=== PATIENT | male | born 1975 | race Caucasian/White ===

== ENCOUNTER 2024-05-11 15:50 | Outpatient (CLI) | payer BC, SELFPAY ==
[2024-05-11 16:37] LABS: Alanine Aminotransferase 36 U/L (6-50); Aspartate Amino Transferase 47 U/L (17-59)
== END 2024-05-11 15:51 | disposition home or self-care (01) ==
LOC: ANHLAB 15:54
PROVIDERS: Visit Provider Podiatrist Foot & Ankle Surgery
DX: B35.1 Tinea unguium (principal)
CPT/HCPCS: 36415; 84450; 84460

== ENCOUNTER 2024-10-28 14:40 | Outpatient (CLI) | payer BC, SELFPAY ==
[2024-10-28 15:26] LABS: Alanine Aminotransferase 35 U/L (6-50); Aspartate Amino Transferase 35 U/L (17-59)
--- OUTSIDE RECORDS SUMMARY | 2024-10-29 14:37 | XMS_ITS | Clinical Summary ---
Author Organization [facility] Address [address] [place] [address] Care Team Providers Care Enrichment Assistant Name Role Phone Jeferson Vinson APRN-RELIEF PILOT Primary Care Provider + Fran Appiah DPM Unavailable [phone] Source Comments [facility],non-owned Affiliates and Associated Physician Practices is amultiple site organization consisting of ambulatory clinics and hospital sitesin [place], [place], [place] and [place]. This disclosure is being madepursuant to the Care Everywhere program and may not contain all information available regarding this patient. Last updated 18.[facility] Allergies No known active allergies Medications * Be aware that medications may not be up to date on this document. Alwaysverify current medications with the patient. semaglutide (RYBELSUS) 7 MG tabletIndications:T ype 2 diabetes mellitus without complication, without long-term current use of insulin (HCC) Take 1 (one) tablet by mouth once daily 30 tablet 1 2 Active rosuvastatin (Crestor) 20 MG tabletIndications:M ixed hyperlipidemia Take 1 (one) tablet by mouth once daily 90 tablet 4 4 Active valsartan-hydroCHLO ROthiazide (Diovan HCT) 320-25 MG tabletIndications:E ssential hypertension Take 1 (one) tablet by mouth once daily 90 tablet 4 4 Active metFORMIN (Glucophage) 500 MG tablet Take 2 (two) tablets by mouth 2 times daily with morning and evening meal 360 tablet 4 4 Active Active Problems Problem Noted Date Diagnosed Date Atypical pigmented skin lesion 01/16/2022 Overview (01/16/2022): Left Upper shoulder Prostate cancer screening 12/10/2021 Type 2 diabetes mellitus wit hout complication, without long-term current use of insulin 12/10/2021 Mixed hyperlipidemia 12/10/2021 Essential hypertension 12/10/2021 Immunizations Immunization Administration Dates Next Due HEP A VACCINE, ADULT 02/15/2023 MMR VACCINE 12/11/1992 TD (AGE 6-ADULT) 12/11/1992 Family History Medical History Relation Name Comments Cancer - Prostate Father Cancer - Colon Maternal Grandmother Diabetes; unknown type Paternal Grandmother Relation Name Status Comments Father Maternal Grandmother Paternal Grandmother Social History Tobacco Use Types Packs/Day Years Used Date Smoking Tobacco: Never Smokeless Tobacco: Never Alcohol Use Standard Drinks/Week Comments Not Currently 0 (1 standard drink = 0.6 oz pur e alcohol) rarely PHQ-2 Answer Date Recorded Patient Health Questionnaire-2 Score 0 12/16/2023 Sex and Gender Information Value Date Recorded Sex Assigned at Not on file Legal Sex Male 5:45 PM CDT Gender Identity Not on file Sexual Orientation Not on file Last Filed Vital Signs Vital Sign Reading Time Taken Comments Blood Pressure 118/74 12/16/2023 10:44 AM CDT Pulse 74 12/16/2023 10:44 AM CDT Temperature 36.7 C (98 F) 12/16/2023 10:44 AM CDT Respiratory Rate 16 12/16/2023 10:4 4 AM CDT Oxygen Saturation 98% 12/16/2023 10: 44 AM CDT Inhaled Oxygen Concentration - - Weight 107.8 kg (237 lb 9.6 oz) 024 10:44 AM CDT Height 182.9 cm (6') 12/16/2023 10:44 AM CDT Body Mass Index 32.22 12/16/2023 10:44 AM CDT Plan of Treatment Upcoming Encounters Date Type Department Care Team ([facility] st Contact Info) Description 12/02/2024 11:00 AM CDT Office Visit [facility] [address] [place] [id number] Jeferson Vinosn [facility] [address] [place] [address] Health Maintenance Due Date Last Done Comments COLON MONITORING 1974 COLONOSCOPY - COLON CA SCREENING 1974 CT COLONOGRAPHY - COLON CA SCREENING 1974 FIT - COLON CA SCREENING 1974 FLEX SIG - COLON CA SCREENING 1974 MENINGOCOCCAL GROUPS A/C/Y/W VACCINE (1 - Risk 2-dose series) 1976 PNEUMOCOCCAL VACCINE 50+ (1 of 2 - PCV) 1993 ZOSTER VACCINE (1 of 2) 1993 DTAP/TDAP/TD VACCINES (2 - Td or Tdap) 12/11/2002 12/11/1992 DIABETES RETINOPATHY SCREENING 12/10/2021 DIABETES-FOOT EXAM WITH MONOFILAMENT 12/10/2021 COVID-19 VACCINE ( season) 2024 04/25/2021, 08/17/2020, 07/27/2020 DEPRESSION SCREENING 06/29/2024 12/16/2023, 12/11/19 DIABETES - URINE PROTEIN SCREENING 06/29/2024 02/10/2024, 12/16/2023 DIABETES-HGB A1C 08/12/2024 02/10/2024, 12/16/2023 COLOGUARD (AGES 45-75) - COLON CA SCREENING 12/27/2024 12/27/2021, 12/27/2021 Colorectal Cancer Screening 12/27/2024 DIABETES-SERUM CREATININE 02/09/2025 02/10/2024, INFLUENZA VACCINE (Season Ended) 2025 HEPATITIS C SCREENING Completed 12/10/2021 HIV SCREENING Completed 12/14/2021, 11/27, 12/14/2021, Additional history exists HEPATITIS B VACCINE Discontinued HIB VACCINE Aged Out No longer eligi ble based on patient's age to complete this topic HPV VACCINE Aged Out No longer eligi ble based on patient's age to complete this topic MENINGOCOCCAL (Group B) VACCINE SHARED DECISION-MAKING Aged Out No longer eligible based on patient's age to complete this topic Procedures Procedure Name Priority Date/Time Associated Diagnosis Comments MICROALB/CREAT RATIO URINE RANDOM PANEL Routine 02/10/2024 7:16 AM CDT Type 2 diabetes mellitus without complication, without long-term current use of insulin COMPREHENSIVE METABOLIC PANEL Routine 02/10/2024 7:16 AM CDT Essential hypertension HEMOGLOBIN A1C Routine 02/10/2024 7:16 AM CDT Type 2 diabetes mellitus without complication, without long-term current use of insulin COLOGUARD TEST Routine 12/27/2021 7:50 AM CDT Special screening for malignant neoplasms, colon HIV-1 HIV-2 ANTIBODY + HIV P24 AG PANEL Routine 12/14/2021 9:08 AM CDT HIV p24 antigen positive HEPATITIS C ANTIBODY Routine 12/10/2021 10:47 AM CDT Need for hepatitis C screening test from Last 3 Months or Most Recently Relevant to Health Maintenance Results * MICROALB/CREAT RATIO URINE RANDOM PANEL (02/10/2024 7:16 AM CDT) Creatinine Urine 58.3 Not Estab. mg/dL 02/11/2024 12:08 PM CDT [facility]) Microalbumin Urine 3.3 Not Estab. ug/mL 02/11/2024 12:08 PM CDT [facility] ([facility]) Microalbumin/Crea tinine Ratio 6 0 - 29 mg/g creat 02/11/2024 12:08 PM CDT [facility] ([facility]) Comment: Normal: 0 - 29 Moderately increased: 30 - 300 Severely increased: >300 Urine URINE SPECIMEN OBTAINED BY CLEAN CATCH PROCEDURE / Unknown Collection / Unknown 02/10/2024 7:16 AM CDT 02/10/2024 7:16 AM CDT [facility] ([facility]) - 02/11/2024 12:08 PM CDT Performed at: [address] [place] [id number] Senior Oracle Soa Developer: Jonh Paredes PhD, Phone: [phone] Jeferson Vinson APRN-RELIEF PILOT LAB - URINE CHEMISTRY OR DERABLES Final Result Performing Organization Address City/[facility]/ZIP Co de Phone Number [facility] ([facility]) [address] [address] * (ABNORMAL) HEMOGLOBIN A1C (02/10/2024 7:16 AM CDT) Hemoglobin A1c 6.4(H) 0.0 - 5.7 % 02/10/2024 8:39 AM CDT [facility] ([facility]) Estimated Average Glucose 136.98 mg/dL 02/10/2024 8:39 AM CDT [facility] ([facility]) Blood BLOOD SPECIMEN / Unknown Lab Venipuncture / Unknown 02/10/2024 7:16 AM CDT 02/10/2024 7:16 AM CDT Narrative [facility] ([facility]) - 02/10/2024 8:39 AM CDT [employer] Suggested Interpretation: 5.7-6.4% Hemoglobin A1c = Prediabetes >6.5% Hemoglobin A1c = Consistent with Diabetes Jeferson Vinson APRN-RELIEF PILOT LAB - CHEMISTRY ORDERABL ES Final Result Performing Organization Address [facility] Co de Phone Number [facility] ([facility]) [address] [place] [address] * (ABNORMAL) COMPREHENSIVE METABOLIC PANEL (02/10/2024 7:16 AM CDT) Sodium 142 137 - 145 mmol/L 02/10/2024 10:35 AM CDT [facility] ([facility]) Potassium 3.9 3.6 - 5.0 mmol/L 02/10/2024 10:35 AM CDT [facility] ([facility]) Chloride 101 98 - 107 mmol/L 02/10/2024 10:35 AM CDT [facility] ([facility]) Carbon Dioxide 31 21 - 31 mmol/L 02/10/2024 10:35 AM CDT [facility] ([facility]) Glucose 115(H) 75 - 100 mg/dL 02/10/2024 10:35 AM [facility] ([facility]) BUN 23(H) 7 - 17 mg/dL 02/10/2024 10:35 AM [facility] ([facility]) Creatinine 0.90 0.66 - 1.25 mg/dL 02/10/2024 10:35 AM [facility] ([facility]) eGFR 90 >=60 ml/min/1.7 3*2 02/10/2024 10:35 AM [facility] ([facility]) Comment: Chronic kidney disease is defined as either the presence of kidney disease or a GFR of less than 60 ml/min/1.732 for 3 or more months and can be diagnosed without knowledge of its cause (NKF). Reference range in ml/min/1.732 For healthy adults > 60 Chronic Kidney Disease 15-60. GFR is not recommended for patients greater than 70 years. Reference ranges not available for patients under 18 yrs. Test will not be performed. BUN/Creatinine Ratio 26.9(H) 6.0 - 26.0 02/10/2024 10:35 AM [facility] ([facility]) Calcium 10.2 8.4 - 10.7 mg/dL 02/10/2024 10:35 AM [facility] ([facility]) Protein Total 8.5(H) 6.3 - 8.2 g/dL 02/10/2024 10:35 AM [facility] ([facility]) Albumin 5.0 3.9 - 5.0 g/dL 02/10/2024 10:35 AM [facility] ([facility]) Albumin/Globulin Ratio 1.4 1.1 - 2.2 g/dL 02/10/2024 10:35 AM [facility] ([facility]) Bilirubin Total 1.4(H) 0.2 - 1.3 mg/dL 02/10/2024 10:35 AM [facility] ([facility]) Alkaline Phosphatase 57 38 - 126 U/L 02/10/2024 10:35 AM [facility] ([facility]) AST 44 14 - 50 U/L 02/10/2024 10:35 AM CDT [facility] ([facility]) ALT 33 9 - 52 U/L 02/10/2024 10:35 AM CDT [facility] ([facility]) Blood BLOOD SPECIMEN / Unknown Lab Venipuncture / Unknown 02/10/2024 7:16 AM CDT 02/10/2024 7:16 AM CDT Jeferson Vinson JAVASCRIPT WEB DEVELOPER-RELIEF PILOT LAB - CHEMISTRY ORDERABL ES Final Result [facility] ([facility]) [address] [place] [address] * COLOGUARD TEST (12/27/2021 7:50 AM CDT) Cologuard Negative Negative [facility] Comment: NEGATIVE TEST RESULT. A negative Cologuard result indicates a low likelihood that a colorectal cancer (CRC) or advanced adenoma (adenomatous polyps with more advanced pre-malignant features) is present. The chance that a person with a negative Cologuard test has a colorectal cancer is less than 1 in 1500 (negative predictive value >99.9%) or has an advanced adenoma is less than 5.3% (negative predictive value 94.7%). These data are based on a prospective cross-sectional study of 10,000 individuals at average risk for colorectal cancer who were screened with both Cologuard and colonoscopy. (Aristeo Sarkar et al, N Engl J Med 2014;370(14):6369-5503) The normal value (reference range) for this assay is negative. COLOGUARD RE-SCREENING RECOMMENDATION: Periodic colorectal cancer screening is an important part of preventive healthcare for asymptomatic individuals at average risk for colorectal cancer. Following a negative Cologuard result, the [place] [employer] Society and U.S. Multi-Society Task Force screening guidelines recommend a Cologuard re-screening interval of 3 years. References: [employer] Guideline for Colorectal Cancer Screening: https://www.cancer.org/cancer/ypptf-bcowkp-ylaqlm/nnctbiftz-ndgeqpxjp-jigmqst/ acs-recommendations.html.; Jorge Luis DK, Cielo ENAMORADO, Garo GONZALEZ, Colorectal Cancer Screening: Recommendations for Physicians and Patients from the U.S. Multi-Society Task Force on Colorectal Cancer Screening , Am J Gastroenterology 2017; 112:5382-1119. TEST DESCRIPTION: Composite algorithmic analysis of stool DNA-biomarkers with hemoglobin immunoassay. Quantitative values of individual biomarkers are not reportable and are not associated with individual biomarker result reference ranges. Cologuard is intended for colorectal cancer screening of adults of either sex, 45 years or older, who are at average-risk for colorectal cancer (CRC). Cologuard has been approved for use by the U.S. FDA. The performance of Cologuard was established in a cross sectional study of average-risk adults aged 50-84. Cologuard performance in patients ages 45 to 49 years was estimated by sub-group analysis of near-age groups. Colonoscopies performed for a positive result may find as the most clinically significant lesion: colorectal cancer [4.0%], advanced adenoma (including sessile serrated polyps greater than or equal to 1cm diameter) [20%] or non- advanced adenoma [31%]; or no colorectal neoplasia [45%]. These estimates are derived from a prospective cross-sectional screening study of 10,000 individuals at average risk for colorectal cancer who were screened with both Cologuard and colonoscopy. (Aristeo Cordero. et al, N Engl J Med 2014;370(14):2964-3859.) Cologuard may produce a false negative or false positive result (no colorectal cancer or precancerous polyp present at colonoscopy follow up). A negative Cologuard test result does not guarantee the absence of CRC or advanced adenoma (pre-cancer). The current Cologuard screening interval is every 3 years. ([employer] Cancer Society and U.S. Multi-Society Task Force). Cologuard performance data in a 10,000 patient pivotal study using colonoscopy as the reference method can be accessed at the following location: www.[employer]/results. Additional description of the Cologuard test process, warnings and precautions can be found at www.[employer].com. Stool STOOL SPECIMEN / Unknown 12/27/2021 7:50 AM CDT 12/28/2021 4:07 PM CDT Jeferson Vinson [facility] - CHEMISTRY ORDERABL ES Final Result Performing Organization Address City/[facility]/ZIP Co de Phone Number [facility] [address] [place] [address] [facility] [address] [place] [address] * HIV-1 HIV-2 ANTIBODY + HIV P24 AG PANEL (12/14/2021 9:08 AM CDT) Pathologist [facility] HIV Screen 4th Generation w Reflex Non Reactive Non Reactive 02/03/2022 12:02 PM CDT [facility] ([facility]) Comment: HIV Negative HIV-1/HIV-2 antibodies and HIV-1 p24 antigen were NOT detected. There is no laboratory evidence of HIV infection. Blood BLOOD SPECIMEN / Unknown Lab Venipuncture / Unknown 12/14/2021 9:08 AM CDT 12/14/2021 9:08 AM CDT Narrative [facility] ([facility]) - 02/03/2022 12:02 PM CDT Performed at: 01 - [facility] [address] [place], [place] [id number] Senior [employer] Soa Developer: Jonh Paredes PhD, Phone: [phone] Jefersonlianne Vinson JAVASCRIPT [facility]B [facility] - CHEMISTRY ORDERABL ES Edited Result - Final Performing Organization Address City/[facility] Co de Phone Number [facility] ([facility]) [address] [place] [address] * HEPATITIS C ANTIBODY (12/10/2021 10:47 AM CDT) [facility] Hepatitis C Antibody <0.1 0.0 - 0.9 s/co ratio 12/11/2021 12:07 PM CDT [facility] ([facility]) Comment: Negative: < 0.8 Indeterminate: 0.8 - 0.9 Positive: > 0.9 HCV antibody alone does not differentiate between previous resolved infection and active infection. The CDC and current clinical guidelines recommend that a positive HCV antibody result be followed up with an HCV RNA test to support the diagnosis of acute HCV infection. [facility] offers Hepatitis C Virus (HCV) RNA, Diagnosis, JENAE (673147) and Hepatitis C Virus (HCV) Antibody with reflex to Quantitative Real-time PCR ([id number]). Blood BLOOD SPECIMEN / Unknown Lab Venipuncture / Unknown 12/10/2021 10:47 AM CDT 12/10/2021 10:47 AM CDT Narrative [facility] ([facility]) - 12/11/2021 12:07 PM CDT Performed at: 01 - [facility] [address] [place], [place] [id number] Senior [employer] So[employer] Developer: Jonh Paredes PhD, Phone: [phone] us Jeferson Vinson APRN-NUHA LAB - CHEMISTRY ORDERABL ES Final Result [facility] ([facility]) [address] [place] [address] from Last 3 Months or Most Recently Relevant to Health Maintenance Insurance Care Teams Enrichment Assistant Relationship Specialty Start Date End Date Jeferson Vinson APRN-CNP [address] [place] [address] PCP - General Nurse Practitioner 12/10/21 Fran Appiah DPM [address] [place] [address] Podiatry 12/10/21
--- OUTSIDE RECORDS SUMMARY | 2024-10-29 14:37 | XMS_ITS | Clinical Summary ---
Author Organization [facility] Address [address] [place] [address] Care Team Providers Care Baggage Porter Head Name Role Phone Unavailable Primary Care Provider Unavailabl e Social History Tobacco Use Types Packs/Day Years Used Date Smoking Tobacco: Never Assessed Sex and Gender Information Value Date Recorded Sex Assigned at Not on file Legal Sex Male 5:17 PM CDT Gender Identity Not on file Sexual Orientation Not on file Last Filed Vital Signs Vital Sign Reading Time Taken Comments Blood Pressure 138/70 05/22/2015 3:08 PM BASE BRANDER Pulse 88 05/22/2015 3:08 PM BASE BRANDER Temperature - - Respiratory Rate - - Oxygen Saturation - - Inhaled Oxygen Concentration - - Weight 54.4 kg (120 lb) 05/22/2015 3:08 PM BASE BRANDER Height 182.9 cm (6') 05/22/2015 3:08 PM BASE BRANDER Body Mass Index 16.27 05/22/2015 3:08 PM BASE BRANDER Plan of Treatment Health Maintenance Due Date Last Done Comments Colorectal Cancer Screening Colonoscopy (10 Years) 1974 Annual Physical 1977 Hepatitis C 1992 DTaP, Tdap and Td Vaccines ( 1 - Tdap) 1993 Hepatitis B Vaccines (1 of 3 - 19+ 3-dose series) 1993 COVID-19 Vaccine ( - 2023-2 5 season) 2024 Pneumococcal Vaccine: 50+ Ye ars (1 of 1 - PCV) 2024 Zoster Vaccines (1 of 2) 2024 Meningococcal B Vaccine Aged Out No l onger eligible based on patient's age to complete this topic Meningococcal Vaccine Aged Out No samir arnold eligible based on patient's age to complete this topic RSV Immunizations Under 20 Months Aged Out No longer eligible based on patient's age to complete this topic
--- OUTSIDE RECORDS SUMMARY | 2024-10-29 14:37 | XMS_ITS | Encounter Summary ---
Author Organization [facility] Address [address] [place] [address] Care Team Providers Care Clerical Manager Name Role Phone Unavailable Primary Care Provider Unavailabl e Encounter Details Date Type Department Care Team (Late st Contact Info) Description 12/04/2018 Abstract [facility] CONVERSION [address] [place] [address] , Generic Conversion, Social History Tobacco Use Types Packs/Day Years Used Date Smoking Tobacco: Never Assessed Sex and Gender Information Value Date Recorded Sex Assigned at Not on file Legal Sex Male 5:17 PM CDT Gender Identity Not on file Sexual Orientation Not on file documented as of this encounter Plan of Treatment Not on file documented as of this encounter Visit Diagnoses Not on filedocumented in this encounter
== END 2024-10-28 14:41 | disposition home or self-care (01) ==
LOC: ANHLAB 14:42
PROVIDERS: Visit Provider Podiatrist Foot & Ankle Surgery
DX: B35.1 Tinea unguium (principal)
CPT/HCPCS: 36415; 84450; 84460